=== PATIENT | male | born 1990 | race African-American/Black ===

== ENCOUNTER 2017-05-14 14:06 | Emergency (ER) | payer OTHER ==
[~2017-05-14] VITALS: Ht 170.2 cm; Wt 62.0 kg
[2017-05-14] MEDS ORDERED: BACITRACIN ZINC OINT UDPKT TOP ONE (14:45)
[2017-05-14] MEDS ORDERED: PIPERACILLIN/TAZOBACTAM 3.375GM/50ML PREMIX IV ONE (14:45)
[2017-05-14] MEDS ORDERED: IBUPROFEN 800MG TABLET PO ONE (14:45)
[2017-05-14] MEDS ORDERED: TETANUS, DIPHTHERIA, PERTUSSIS VAC/PF 0.5ML (>7YR OLD) IM ONE (14:45)
[2017-05-14 14:59] VITALS: BP 131/87
[2017-05-14] MEDS ORDERED: PIPERACILLIN/TAZ 3.375G PREMIX 50 ML IV NR (15:00)
== END 2017-05-14 15:44 | disposition home or self-care (01) ==
LOC: ER 14:06
DX: R51 Headache (principal); S61.051A Open bite of right thumb without damage to nail, initial encounter; W54.0XXA Bitten by dog, initial encounter; Y93.89 Activity, other specified; Y92.018 Other place in single-family (private) house as the place of occurrence of the external cause
CPT/HCPCS: 73130; 90471; 90715; 96365; 99284; J2543; Z7610